=== PATIENT | female | born 1955 | race Caucasian/White ===

== ENCOUNTER 2020-09-30 06:37 | Inpatient (IN) ==
[2020-09-30] MEDS ORDERED: levoFLOXacin 500 MG/100 ML 500 MG/100 ML BAG IVPB ONE (07:29)
[2020-09-30] MEDS ORDERED: Ringers Solution, Lactated 1,000 ML IVC SCH (07:30)
[2020-09-30] MEDS ORDERED: Famotidine 20 MG/2 ML VIAL IVP ONE (07:58)
[2020-09-30] MEDS ORDERED: *HR* HYDROmorphone 2 MG TABLET PO PRN (07:58)
[2020-09-30] MEDS ORDERED: *HR* OxyCODONE Immed Rel 5 MG TABLET PO PRN (07:58)
[2020-09-30] MEDS ORDERED: *HR* Labetalol 20 MG/4 ML SYRINGE IVP PRN (07:58)
[2020-09-30] MEDS ORDERED: Pregabalin 75 MG CAPSULE PO ONE (07:58)
[2020-09-30] MEDS ORDERED: *HR* Rocuronium Bromide 50 MG/5 ML VIAL ONE (08:12)
[2020-09-30] MEDS ORDERED: *HR* Propofol 200 MG/20 ML VIAL IVP ONE (08:12)
[2020-09-30] MEDS ORDERED: *HR* Midazolam HCl 2 MG/2 ML VIAL ONE (08:12)
[2020-09-30] MEDS ORDERED: Ondansetron 4 MG/2 ML VIAL ONE (08:12)
[2020-09-30] MEDS ORDERED: Lidocaine -MPF 2% 2 ML VIAL ONE (08:12)
[2020-09-30] MEDS ORDERED: *HR* FentaNYL (PF) 100 MCG/2 ML VIAL ONE (08:12)
[2020-09-30] MEDS ORDERED: Lidocaine -MPF 4% 5 ML AMPUL ONE (08:16)
[2020-09-30] MEDS ORDERED: *HR* Vasopressin 20 UNIT/ML VIAL ONE (09:14)
[2020-09-30] MEDS ORDERED: Albumin Human 5% 25.0 GM/500 ML IV.SOLN ONE (09:15)
[2020-09-30] MEDS ORDERED: *HR* PHENYLEPHRINE 1,000 MCG/10 ML SYRINGE IVP ONE (10:23)
[2020-09-30] MEDS ORDERED: Dexamethasone 4 MG/ML VIAL ONE (10:34)
[2020-09-30] MEDS: *HR* HYDROmorphone PF 0.5 MG/0.5 ML SYRINGE IVP PRN ×2 (13:00→13:25)
[2020-09-30] MEDS ORDERED: Ondansetron 4 MG/2 ML VIAL IVP PRN (13:57)
[2020-09-30] MEDS ORDERED: Acetaminophen 325 MG TABLET PO PRN (13:57)
[2020-09-30] MEDS ORDERED: Naloxone 0.4 MG/ML INJ IVP PRN (13:57)
[2020-09-30] MEDS: 0.9 % Sodium Chloride 1,000 ML IVC SCH (14:14)
[2020-09-30] MEDS ORDERED: Nicotine 21 MG PATCH.TD24 TD PRN (17:37)
[2020-09-30] MEDS: *HR* Heparin 5,000 UNIT/ML VIAL SQ SCH (18:54)
[2020-09-30] MEDS: Budesonide/Formoterol 160/4.5 1 PUFF INH IH SCH (20:13)
[2020-09-30] MEDS: *HR* OxyCODONE/APAP 10/325 TABLET PO PRN (22:14)
[2020-10-01] MEDS: 0.9 % Sodium Chloride 1,000 ML IVC SCH (00:50)
[2020-10-01] MEDS: *HR* OxyCODONE/APAP 10/325 TABLET PO PRN ×4 (02:25→16:26)
[2020-10-01] MEDS: *HR* Heparin 5,000 UNIT/ML VIAL SQ SCH ×2 (04:57→17:40)
[2020-10-01 05:12] LABS: Basophils % 0.1 %; Hematocrit 32.6 % (35.3-44.9); Hemoglobin 10.5 g/dL (11.5-15.4); Immature Granulocytes % 0.4 % (0-4); Lymphocytes # 0.8 K/mcL (0.6-4.6); Lymphocytes % 7.7 %; Mean Corpuscular HGB Conc 32.2 g/dL (31.6-35.5); Mean Corpuscular Hemoglobin 31.8 pg (28.0-33.3); Mean Corpuscular Volume 98.8 fL (83.0-100.0); Mean Platelet Volume 9.1 fL (9.4-12.4); Monocytes # 0.6 K/mcL (0.0-1.3); Neutrophils # 8.9 K/mcL (1.6-8.9); Platelet Count 206 K/mcL (140-400); Red Cell Distribution Width 13.2 % (11.5-14.5); Segmented Neutrophils % 85.8 %; White Blood Count 10.3 K/mcL (4.3-11.1)
[2020-10-01 05:29] LABS: Calcium 8.1 mg/dL (8.6-10.3); Potassium 4.4 mEq/L (3.5-5.1)
[2020-10-01] MEDS ORDERED: 0.9 % Sodium Chloride 1,000 ML IVC SCH (07:00)
[2020-10-01] MEDS: levoFLOXacin 500 MG/100 ML 500 MG/100 ML BAG IVPB SCH (09:52)
[2020-10-01] MEDS: amLODIPine 5 MG TABLET PO SCH (09:53)
[2020-10-01] MEDS: Budesonide/Formoterol 160/4.5 1 PUFF INH IH SCH ×2 (10:41→19:29)
[2020-10-02] MEDS ORDERED: polyethylene glycoL 3350 17 GM POWD.PACK PO PRN (00:55)
[2020-10-02] MEDS: *HR* Heparin 5,000 UNIT/ML VIAL SQ SCH (05:18)
[2020-10-02 05:25] LABS: Hematocrit 33.9 % (35.3-44.9); Hemoglobin 10.9 g/dL (11.5-15.4); Mean Corpuscular HGB Conc 32.2 g/dL (31.6-35.5); Mean Corpuscular Hemoglobin 32.1 pg (28.0-33.3); Mean Corpuscular Volume 99.7 fL (83.0-100.0); Mean Platelet Volume 9.1 fL (9.4-12.4); Platelet Count 204 K/mcL (140-400); Red Cell Distribution Width 13.5 % (11.5-14.5); White Blood Count 11.9 K/mcL (4.3-11.1)
[2020-10-02 05:44] LABS: Calcium 8.8 mg/dL (8.6-10.3)
[2020-10-02] MEDS: Budesonide/Formoterol 160/4.5 1 PUFF INH IH SCH (07:48)
[2020-10-02] MEDS: amLODIPine 5 MG TABLET PO SCH (09:18)
[2020-10-02] MEDS: levoFLOXacin 500 MG/100 ML 500 MG/100 ML BAG IVPB SCH (09:19)
[2020-10-02] MEDS ORDERED: Bisacodyl 10 MG RECTAL SUPPOSITORY RC PRN (10:47)
[2020-10-02] MEDS ORDERED: FLU Vac QV 20-21 (6Month+)/PF 0.5 ML SYRINGE IM ONE (11:03)
[2020-10-02 12:29] VITALS: BP 106/63
== END 2020-10-02 12:36 | disposition home or self-care (01) | DRG 661 ==
LOC: SAMDAY 06:37 → 3ANU 13:50
PROVIDERS: ADMIT Urology; ATTEND Urology